=== PATIENT | female | born 1995 | race Caucasian/White ===

== ENCOUNTER 2017-09-26 09:11 | Day surgery (SDC) | payer OTHER ==
[2017-09-26] MEDS: CEFAZOLIN 2 GM/50 ML (PMX) 50 ML IVPB (09:00)
[2017-09-26] MEDS: SOD CHLORIDE 0.9% 1,000 ML IV (09:00)
[~2017-09-26 09:11] MED LIST: SUGAMMADEX SODIUM 200 MG/2 ML VIAL IV
[2017-09-26] MEDS ORDERED: NALOXONE (0.4 MG/ML) INJ IV ×2 (09:30)
[2017-09-26] MEDS ORDERED: GLYCOPYRROLATE 1 MG INJ (09:36)
[2017-09-26] MEDS ORDERED: ROCURONIUM 50 MG INJ (09:36)
[2017-09-26] MEDS ORDERED: PROPOFOL 20 ML (09:36)
[2017-09-26] MEDS ORDERED: NEOSTIGMINE 3 MG/3 ML SYRINGE (09:36)
[2017-09-26] MEDS ORDERED: LIDOCAINE 2% (SDV) 5 ML INJ (09:36)
[2017-09-26] MEDS ORDERED: FENTAnyl 50 MCG/ML VIAL (09:36)
[2017-09-26] MEDS ORDERED: MIDAZOLAM 1 MG/ML 2 ML INJ (09:36)
[2017-09-26] MEDS ORDERED: ONDANSETRON 4 MG INJ (09:37)
[2017-09-26] MEDS ORDERED: DEXAMETHASONE 4 MG/ML 1 ML INJ (09:37)
[2017-09-26 10:33] LABS: ADD MAN DIFF? NO
[2017-09-26 10:35] LABS: BASOPHILS % 1.1 % (0.0-2.0); EOSINOPHILS % 0.8 % (0.0-7.0); HEMATOCRIT 37.4 % (37.0-47.0); HEMOGLOBIN 12.4 g/dl (12.0-16.0); LYMPHOCYTES # 1.4 10^3/ul (0.8-2.9); MEAN CORPUSCULAR HEMOGLOBIN 30.5 pg (29.0-33.0); MEAN CORPUSCULAR HGB CONC 33.2 g/dl (32.0-37.0); MEAN CORPUSCULAR VOLUME 92.1 fl (82.0-101.0); MEAN PLATELET VOLUME 9.6 fl (7.4-10.4); MONOCYTE # 0.3 10^3/ul (0.3-0.9); MONOCYTES % 8.2 % (0.0-11.0); NEUTROPHIL # 1.9 10^3/ul (1.6-7.5); NEUTROPHILS % 51.6 % (39.0-77.0); PLATELET COUNT 267 10^3/UL (140-415); RED BLOOD COUNT 4.06 10^6/ul (4.20-5.40); RED CELL DISTRIBUTION WIDTH 12.2 % (11.5-14.5)
[2017-09-26 10:35] LABS: WHITE BLOOD COUNT 3.7 10^3/ul (4.8-10.8)
[2017-09-26 10:56] LABS: INR 1.04; PROTIME 13.7 Sec (11.9-14.9); PT RATIO 1.1
[2017-09-26 10:57] LABS: PARTIAL THROMBOPLASTIN TIME 28.4 Sec (25.0-35.0)
[2017-09-26] MEDS: BUPIVACAINE 0.5% (SDV) 30 ML INJ (11:01)
[2017-09-26] MEDS: LIDOCAINE 1% (MPF) 30 ML INJ (11:01)
[2017-09-26 11:31] LABS: ALANINE AMINOTRANSFERASE 30 IU/L (13-69); ALBUMIN/GLOBULIN RATIO 1.25; ALKALINE PHOSPHATASE 67 IU/L (42-121); ANION GAP 13 (8-16); ASPARTATE AMINO TRANSFERASE 19 IU/L (15-46); BILIRUBIN,INDIRECT 0.8 mg/dl (0-1.1); BILIRUBIN,TOTAL 0.8 mg/dl (0.2-1.3); CARBON DIOXIDE 25 mmol/L (21-31); CHLORIDE 107 mmol/L (97-110); CREATININE 0.65 mg/dl (0.44-1.00); GLUCOSE 99 mg/dl (70-220); SODIUM 142 mmol/L (135-144); TOTAL PROTEIN 7.2 g/dl (6.1-8.1)
[2017-09-26 11:37] LABS: BLOOD UREA NITROGEN 6 mg/dl (7-20); POTASSIUM 3.3 mmol/L (3.5-5.1)
[2017-09-26] MEDS: BUPIVACAINE 0.25%/EPI (MDV) 50 ML VIAL INJ (12:47)
[2017-09-26] MEDS ORDERED: KETOROLAC 30 MG INJ IV (13:00)
[2017-09-26] MEDS ORDERED: ONDANSETRON 4 MG INJ IV (13:00)
[2017-09-26] MEDS ORDERED: morphine 2 MG INJ IV (13:00)
[2017-09-26] MEDS ORDERED: OXYCODONE/ACETAMINOPHEN (5/325) TAB PO ×2 (13:00)
[2017-09-26] MEDS ORDERED: IBUPROFEN 600 MG TAB PO (13:00)
== END 2017-09-26 15:27 | disposition home or self-care (01) ==
LOC: SDS 09:11
DX: K64.4 Residual hemorrhoidal skin tags (principal); K64.8 Other hemorrhoids
CPT/HCPCS: 46255; 80053; 85025; 85610; 85730; 88302